=== PATIENT | male | born 1945 | race Caucasian/White ===

== ENCOUNTER 2016-06-11 19:18 | Emergency (ER) | payer MEDICARE, OTHER ==
[~2016-06-11 19:18] MED LIST: CYCLOBENZAPRINE10 M1 PO; NORCO 5-325 TA1 EACH PO; [UNRECOGNIZED DRUG - REMARK]
== END 2016-06-11 19:19 ==
LOC: EDMED 19:18
DX: S40.012A Contusion of left shoulder, initial encounter (principal); W19.XXXA Unspecified fall, initial encounter; Y92.019 Unspecified place in single-family (private) house as the place of occurrence of the external cause